=== PATIENT | female | born 1995 | race African-American/Black ===

== ENCOUNTER 2018-12-03 10:00 | Emergency (ER) | payer OTHER ==
[~2018-12-03] VITALS: Ht 162.6 cm; Wt 72.0 kg
[~2018-12-03 10:00] MED LIST: OMEP10CA3 PO
[2018-12-03] MEDS ORDERED: IV NORMAL SALINE 1,000ML 1,000 ML IV ONE (10:15)
[2018-12-03] MEDS ORDERED: ONDA4TAB7 PO (10:18)
--- NOTE | 2018-12-03 10:18 | PHYS DOC ---
Past History Past Medical History: Anxiety, Other Smoking: Non-smoker Alcohol Use: Rarely Drug Use: None Adult General Chief Complaint Chief Complaint: NAUSEA/VOMITING/DIARRHEA HPI HPI History of present illness: 23-year-old female presenting to the emergency department today with nausea and vomiting with upper abdominal pain for the past 24 hours. She started taking new supplement recently for weight loss when her symptoms started. Her vomitus is nonbilious and nonbloody. She has a history of having a partial hysterectomy. Her abdominal pain is a burning mild nonradiating intermittent pain. Past medical history: History of ovarian cancer status post partial hysterectomy , anxiety Surgical history: Appendectomy Social history denies smoking, drinks occasionally, denies IV drug use Review of systems is negative for chest pain shortness of breath fevers chills. All other review of systems is negative unless otherwise noted in history of present illness. ED course: 23-year-old female presenting with epigastric abdominal pain. Vitals are unremarkable. Exam is soft and nontender. CT abdomen pelvis shows no acute pathology but does show lesions in the iliac bone and spine concerning for possible metastatic disease. Patient has an appointment with her hematology oncologist tomorrow. I will refer her to him tomorrow for chest CT and MRI of these lesions for further evaluation treatment and care.The patient has been examined and was not found to have an emergency medical condition. The patient was then discharged home in stable condition to follow up with hem onc tomorrow. They were to return if their symptoms worsened or if they were concerned for any reason. They were also instructed to return to the emergency department if they were unable to get the recommended and appropriate follow- up. [id number] discharge instructions and return precautions were given. Patient's questions were answered to their satisfaction. Patient is comfortable with plan. Review of Systems Review of Systems SEE ABOVE. Allergies Allergies Allergies Coded Allergies Type Severity Reaction Last Updated Verified No Known Drug Allergies 03/31/14 No Physical Exam Physical Exam SEE ABOVE Constitutional: Well developed, well nourished, no acute distress, non-toxic appearance. HENT: Normocephalic, atraumatic, bilateral external ears normal, oropharynx moist, no oral exudates, nose normal. [] Eyes: PERRLA, EOMI, conjunctiva normal, no discharge. [] Neck: Normal range of motion, no tenderness, supple, no stridor. Cardiovascular:Heart rate regular rhythm, no murmur [] Lungs & Thorax: Bilateral breath sounds clear to auscultation [] Abdomen: Soft nontender abdomen without rebound tenderness or guarding present. Negative McBurneys point. Negative Perez sign. Skin: Warm, dry, no erythema, no rash. [] Back: No tenderness, no CVA tenderness. Extremities: No tenderness, no cyanosis, no clubbing, ROM intact, no edema. [] Neurologic: Alert and oriented X 3, normal motor function, normal sensory function, no focal deficits noted. [] Psychologic: Affect normal, judgement normal, mood normal. EKG EKG [] Radiology/Procedures Radiology/Procedures [] Course & Med Decision Making Course & Med Decision Making Pertinent Labs and Imaging studies reviewed. (See chart for details) [] Dragon Disclaimer Dragon Disclaimer This electronic medical record was generated, in whole or in part, using a voice recognition dictation system. Departure Departure: Impression: Primary Impression: Abdominal pain Additional Impression: Nausea & vomiting Disposition: 01 HOME, SELF-CARE Condition: STABLE Referrals: PCPBRUNO (PCP) Patient Instructions: Abdominal Pain, Women, Nausea and Vomiting Additional Instructions: Thank you for allowing us to participate in your care today. Return to the emergency department you have any new or worsening symptoms, or if you are concerned for any reason. Return to emergency department if you have any new or concerning symptoms including but not limited to fever, chills, nausea, vomiting, intractable pain, any new rashes, chest pain, shortness of air , uncontrolled bleeding, difficulty breathing, and/or vision loss. Follow up with your primary care physician within 1-2 days. Call your Primary Doctor tomorrow and inform them of your visit today. If you do not have a primary care provider we are happy to provide you with a list of our primary care providers contact information. This condition should be evaluated by your primary care physician and any recommended consulting services for continued management within 2 days after discharge. If at any time, you are having difficulty getting into your primary care doctor or a specialist, return to the emergency department. Scripts Ondansetron Hcl (ZOFRAN) 4 Mg Tablet 1 TAB PO PRN Q6HRS PRN for NAUSEA, #6 TAB Prov: VANESSA TROY MD 12/03/18 Problem Qualifiers VANESSA TROY MD Dec 03, 2018 10:18
[2018-12-03] MEDS ORDERED: ONDANSETRON PF 4 MG/2 ML VIAL. IV ONE (10:30)
[2018-12-03 10:40] LABS: HEMATOCRIT 45.2 % (36.0-47.0); HEMOGLOBIN 14.8 g/dL (12.0-15.5); MEAN CORPUSCULAR HEMOGLOBIN 32 pg (25-35); MEAN CORPUSCULAR HGB CONC 33 g/dL (31-37); MEAN CORPUSCULAR VOLUME 99 fL (79-100); PLATELET COUNT 228 x10^3/uL (140-400); RED BLOOD COUNT 4.58 x10^6/uL (3.50-5.40); RED CELL DISTRIBUTION WIDTH 12.5 % (11.5-14.5); WHITE BLOOD COUNT 10.4 x10^3/uL (4.0-11.0)
[2018-12-03 10:44] LABS: CALCIUM 9.6 mg/dL (8.5-10.1); CREATININE 0.7 mg/dL (0.6-1.0); DIRECT BILIRUBIN 0.1 mg/dL (0.0-0.2); GFR 124.4; PREG TEST PT QUAL NEGATIVE (NEG); TOTAL BILIRUBIN 0.4 mg/dL (0.2-1.0); TOTAL PROTEIN 8.1 g/dL (6.4-8.2)
[2018-12-03 11:00] LABS: CLARITY,URINE CLOUDY; COLOR,URINE YELLOW
[2018-12-03 11:01] LABS: AMORPHOUS SEDIMENT,UR PRESENT /HPF; BACTERIA,URINE 0 /HPF (0-FEW); BILIRUBIN,URINE NEG (NEG); GLUCOSE,URINE NEG (NEG); NITRITE,URINE NEG (NEG); RBC,URINE 0 /HPF (0-2); SQUAMOUS EPITHELIAL CELL,UR OCC /LPF; UROBILINOGEN,URINE 0.2 mg/dL (0.2 mg/dL); WBC,URINE RARE /HPF (0-4)
[2018-12-03] MEDS ORDERED: IOHEXOL 300 MG/ML 75 ML VIAL. IV ONE (11:15)
[2018-12-03 11:40] LABS: % BANDS 1 % (0-9); % BASOS 0 % (0-3); % EOS 2 % (0-5); % LYMPHS 16 % (24-48); % MONOS 2 % (0-10); % SEGS 79 % (35-66); PLT ESTIMATE ADEQUATE (ADEQUATE); TOXIC VACUOLATION SLIGHT
--- NOTE | 2018-12-03 11:57 | RAD ---
CT ABD PELV W/ IV CONTRST ONLY History: Abdominal pain, nausea and vomiting starting last night Technique: Postcontrast CT imaging was performed of the abdomen and pelvis, multiplanar reconstruction images submitted. No oral contrast was given as per request. One or more of the following individualized dose reduction techniques were utilized for this examination: 1. Automated exposure control 2. Adjustment of the mA and/or kV according to patient size 3. Use of iterative reconstruction technique. Comparison: March 31, 2014 Findings: There is no abnormality of the limited visualized lung bases. No focal abnormality is identified of the liver, spleen, pancreas, gallbladder. There is no adrenal nodularity. Both kidneys enhance without hydronephrosis. Accurate evaluation of bowel is limited without oral contrast. There is no significant bowel dilatation, free air, free fluid. There has been appendectomy, also reportedly right oophorectomy. There is no significant inflammatory type change localized about the bowel. However there is appearance of at least mild diffuse transverse colonic wall thickening. There is larger focus of nonspecific sclerosis of the left iliac bone about 1.3 cm with somewhat spiculated margin, previously about 0.6 cm. There are also some small sclerotic foci such as on the right at S1 and on the left at L1 and T11 not seen previously, small sclerotic focus focus of the left L4 vertebral body probably unchanged. Limited visualized right breast is more heterogeneous than the left. IMPRESSION: 1. Suboptimally evaluated without oral contrast, there is appearance of diffuse transverse colonic wall thickening suggestive of colitis. There is no free air or free fluid. Bowel is not significantly dilated. 2. There is a focus of nonspecific sclerosis of the left iliac bone larger than 2014 exam, also some other new tiny foci of sclerosis of S1, T11, L1. Given change, findings are concerning for marrow replacing lesions (such as metastatic disease). Bone scan evaluation to assess for abnormal radiotracer activity and to assess for other lesions is advised, also chest CT evaluation and breast evaluation recommended. Findings discussed with VANESSA TROY at 12/03/2018 11:52 AM. Electronically signed by: Rodrigo Jimenez MD (12/03/2018 11:53 AM) [id number]
[2018-12-03 12:25] VITALS: BP 122/66
== END 2018-12-03 12:25 | disposition home or self-care (01) ==
LOC: ER 10:00
DX: R11.2 Nausea with vomiting, unspecified (principal); R10.10 Upper abdominal pain, unspecified; Z90.710 Acquired absence of both cervix and uterus; Z90.89 Acquired absence of other organs
CPT/HCPCS: 36415; 74177; 80048; 80076; 81001; 81025; 83690; 84703; 85007; 85025; 96361; 96374; 99284; J2405; Q9967; J7030

== ENCOUNTER 2019-01-17 07:59 | Emergency (ER) | payer OTHER ==
[~2019-01-17] VITALS: Ht 162.6 cm; Wt 68.0 kg
[~2019-01-17 07:59] MED LIST changes: -OMEP10CA3 PO; +OMEP10CA4 PO; +ONDA4TAB7 PO
[2019-01-17 08:10] VITALS: BP 119/87
[2019-01-17] MEDS ORDERED: ONDANSETRON PF 4 MG/2 ML VIAL. ONE (08:20)
[2019-01-17] MEDS ORDERED: IV NORMAL SALINE 1,000ML 1,000 ML IV SCH (08:30)
[2019-01-17] MEDS ORDERED: ONDANSETRON PF 4 MG/2 ML VIAL. IV ONE (08:30)
[2019-01-17 08:38] LABS: AMPHETAMINE/METHAMPHETAMINE NEG (NEG); BARBITURATES NEG (NEG); BENZODIAZEPINES NEG (NEG); CANNABINOIDS POS (NEG); COCAINE NEG (NEG); METHADONE NEG (NEG); OPIATES NEG (NEG); PHENCYCLIDINE NEG (NEG)
[2019-01-17 08:44] LABS: BASO % 1 % (0-3); EOS # 0.1 x10^3/uL (0.0-0.7); EOS % 2 % (0-3); HEMATOCRIT 43.4 % (36.0-47.0); HEMOGLOBIN 14.7 g/dL (12.0-15.5); LYMPH # 2.2 x10^3/uL (1.0-4.8); LYMPH % 37 % (24-48); MEAN CORPUSCULAR HEMOGLOBIN 32 pg (25-35); MEAN CORPUSCULAR HGB CONC 34 g/dL (31-37); MEAN CORPUSCULAR VOLUME 96 fL (79-100); MONO # 0.3 x10^3/uL (0.0-1.1); MONO % 5 % (0-9); NEUT # 3.3 x10^3uL (1.8-7.7); NEUT % 56 % (31-73); PLATELET COUNT 189 x10^3/uL (140-400); RED BLOOD COUNT 4.54 x10^6/uL (3.50-5.40); RED CELL DISTRIBUTION WIDTH 12.6 % (11.5-14.5); WHITE BLOOD COUNT 5.9 x10^3/uL (4.0-11.0)
[2019-01-17 08:48] LABS: BILIRUBIN,URINE NEG (NEG); CLARITY,URINE HAZY; COLOR,URINE YELLOW; GLUCOSE,URINE NEG (NEG)
[2019-01-17 08:49] LABS: BACTERIA,URINE FEW /HPF (0-FEW); NITRITE,URINE NEG (NEG); SQUAMOUS EPITHELIAL CELL,UR FEW /LPF; UROBILINOGEN,URINE 0.2 mg/dL (0.2 mg/dL)
[2019-01-17 08:56] LABS: CALCIUM 9.3 mg/dL (8.5-10.1); CREATININE 0.7 mg/dL (0.6-1.0); GFR 124.4; POTASSIUM 3.6 mmol/L (3.5-5.1); TOTAL BILIRUBIN 0.4 mg/dL (0.2-1.0)
[2019-01-17] MEDS ORDERED: KETOROLAC 30 MG/ML VIAL. IV ONE (09:15)
[2019-01-17] MEDS ORDERED: ONDA4TAB7 PO (09:36)
--- NOTE | 2019-01-17 09:37 | PHYS DOC ---
Past History Past Medical History: Cancer Past Surgical History: Other Smoking: Non-smoker Alcohol Use: None Drug Use: None Adult General Chief Complaint Chief Complaint: NAUSEA/VOMITING/DIARRHEA HPI HPI Patient is a 23 year old female who presents with complaining of nausea and vomiting and diarrhea since this morning. Patient states since yesterday this morning she had more than 10 episodes of bile vomiting and 4 episodes of diarrhea with epigastric and periumbilical pain as a cramping pain during episodes of vomiting and diarrhea. Patient rated her pain 7/10 and denies fever and chills, urinary symptom, sick contact. Patient states she had the same problem previously and was seen in this emergency room. Patient had history of ovarian cancer treated 2 years ago at [facility] and followed up with her oncologist after had abnormal CT of abdomen and pelvis in her previous emergency room visit with concern for possible bone metastases and was told she does not have bony metastasis. Review of Systems Review of Systems Constitutional: Denies fever or chills [] Eyes: Denies change in visual acuity, redness, or eye pain [] HENT: Denies nasal congestion or sore throat [] Respiratory: Denies cough or shortness of breath [] Cardiovascular: No additional information not addressed in HPI [] GI: Reports abdominal pain, nausea, vomiting, diarrhea [] : Denies dysuria or hematuria [] Musculoskeletal: Denies back pain or joint pain [] Integument: Denies rash or skin lesions [] Neurologic: Denies headache, focal weakness or sensory changes [] Endocrine: Denies polyuria or polydipsia [] All other systems were reviewed and found to be within normal limits, except as documented in this note. Current Medications Current Medications Current Medications Medications (Trade) Dose Ordered Sig/Mihai Start Time Stop Time Status Last Admin Dose Admin Ketorolac Tromethamine (Toradol 30mg Vial) 30 mg 1X ONCE 01/17/19 09:15 01/17/19 09:17 DC 01/17/19 09:06 30 MG Ondansetron HCl (Zofran) 4 mg 1X ONCE 01/17/19 08:30 01/17/19 08:31 DC 01/17/19 08:36 4 MG Sodium Chloride 1,000 ml @ 1,000 mls/hr Q1H 01/17/19 08:30 01/17/19 09:29 DC 01/17/19 08:36 1,000 MLS/HR Allergies Allergies Allergies Coded Allergies Type Severity Reaction Last Updated Verified No Known Drug Allergies 12/03/18 No Physical Exam Physical Exam Constitutional: Well developed, well nourished, moderate acute distress, non- toxic appearance. [] HENT: Normocephalic, atraumatic, oropharynx dry, no oral exudates, nose normal. [] Eyes: PERRLA, EOMI, conjunctiva normal, no discharge. [] Neck: Normal range of motion, no tenderness, supple, no stridor. [] Cardiovascular:Heart rate regular rhythm, no murmur [] Lungs & Thorax: Bilateral breath sounds clear to auscultation [] Abdomen: Bowel sounds normal, soft, no tenderness, no masses, no pulsatile masses. [] Skin: Warm, dry, no erythema, no rash. [] Back: No tenderness, no CVA tenderness. [] Extremities: No tenderness, no cyanosis, no clubbing, ROM intact, no edema. [] Neurologic: Alert and oriented X 3, normal motor function, normal sensory function, no focal deficits noted. [] Psychologic: Affect normal, judgement normal, mood normal. [] Current Patient Data Vital Signs Vital Signs Date Time Temp Pulse Resp B/P (MAP) Pulse Ox O2 Delivery O2 Flow Rate FiO2 01/17/19 08:10 97.6 89 20 100 Room Air Lab Results Laboratory Tests Test 01/17/19 08:10 01/17/19 08:17 01/17/19 08:21 Urine Collection Type Unknown Urine Color Yellow Urine Clarity Hazy Urine pH 5.5 Urine Specific Warner >=1.030 Urine Protein 30 mg/dl (NEG-TRACE) Urine Glucose (UA) Neg mg/dL (NEG) Urine Ketones (Stick) Neg mg/dL (NEG) Urine Blood Neg (NEG) Urine Nitrite Neg (NEG) Urine Bilirubin Neg (NEG) Urine Urobilinogen Dipstick 0.2 mg/dL (0.2 mg/dL) Urine Leukocyte Esterase Neg (NEG) Urine RBC 1-2 /HPF (0-2) Urine WBC 1-4 /HPF (0-4) Urine Squamous Epithelial Cells Few /LPF Urine Bacteria Few /HPF (0-FEW) Urine Mucus Slight /LPF Urine Opiates Screen Neg (NEG) Urine Methadone Screen Neg (NEG) Urine Barbiturates Neg (NEG) Urine Phencyclidine Screen Neg (NEG) Urine Amphetamine/Methamphetamine Neg (NEG) Urine Benzodiazepines Screen Neg (NEG) Urine Cocaine Screen Neg (NEG) Urine Cannabinoids Screen Pos (NEG) Urine Ethyl Alcohol Neg (NEG) POC Urine HCG, Qualitative hcg negative (Negative) White Blood Count 5.9 x10^3/uL (4.0-11.0) Red Blood Count 4.54 x10^6/uL (3.50-5.40) Hemoglobin 14.7 g/dL (12.0-15.5) Hematocrit 43.4 % (36.0-47.0) Mean Corpuscular Volume 96 fL (79-100) Mean Corpuscular Hemoglobin 32 pg (25-35) Mean Corpuscular Hemoglobin Concent 34 g/dL (31-37) Red Cell Distribution Width 12.6 % (11.5-14.5) Platelet Count 189 x10^3/uL (140-400) Neutrophils (%) (Auto) 56 % (31-73) Lymphocytes (%) (Auto) 37 % (24-48) Monocytes (%) (Auto) 5 % (0-9) Eosinophils (%) (Auto) 2 % (0-3) Basophils (%) (Auto) 1 % (0-3) Neutrophils # (Auto) 3.3 x10^3uL (1.8-7.7) Lymphocytes # (Auto) 2.2 x10^3/uL (1.0-4.8) Monocytes # (Auto) 0.3 x10^3/uL (0.0-1.1) Eosinophils # (Auto) 0.1 x10^3/uL (0.0-0.7) Basophils # (Auto) 0.0 x10^3/uL (0.0-0.2) Sodium Level 145 mmol/L (136-145) Potassium Level 3.6 mmol/L (3.5-5.1) Chloride Level 106 mmol/L (98-107) Carbon Dioxide Level 29 mmol/L (21-32) Anion Gap 10 (6-14) Blood Urea Nitrogen 9 mg/dL (7-20) Creatinine 0.7 mg/dL (0.6-1.0) Estimated GFR (Cockcroft-Gault) 124.4 BUN/Creatinine Ratio 13 (6-20) Glucose Level 107 mg/dL (70-99) H Calcium Level 9.3 mg/dL (8.5-10.1) Total Bilirubin 0.4 mg/dL (0.2-1.0) Aspartate Amino Transferase (AST) 18 U/L (15-37) Alanine Aminotransferase (ALT) 22 U/L (14-59) Alkaline Phosphatase 91 U/L (46-116) Total Protein 8.0 g/dL (6.4-8.2) Albumin 4.0 g/dL (3.4-5.0) Albumin/Globulin Ratio 1.0 (1.0-1.7) Lipase 206 U/L (73-393) EKG EKG [] Radiology/Procedures Radiology/Procedures [] Course & Med Decision Making Course & Med Decision Making Pertinent Labs reviewed. (See chart for details) Evolution of patient in ER showed 23-year-old female patient with complaining of episodes of nausea and vomiting and diarrhea since this morning. Patient treated with IV fluid and Zofran and Toradol and felt better and tolerated oral intake. Patient had the same problem few weeks ago and seen in this emergency room and had CT of abdomen and pelvis. Plan discharge patient home with diagnosis of acute gastroenteritis and instruction to follow up with her oncologist. Dragon Disclaimer Dragon Disclaimer This electronic medical record was generated, in whole or in part, using a voice recognition dictation system. Departure Departure: Impression: Primary Impression: Acute gastroenteritis Additional Impressions: Marijuana abuse History of ovarian cancer in adulthood Disposition: 01 HOME, SELF-CARE (at 0935) Condition: IMPROVED Referrals: PCP,NO (PCP) Patient Instructions: Viral Gastroenteritis Additional Instructions: Drink plenty of liquids Follow-up with your primary care physician in 3-5 days Return to ER if not getting better Do not take solid food today Scripts Ondansetron Hcl (ZOFRAN) 4 Mg Tablet 1 TAB PO Q6HRS for nausea and vomiting, #12 TAB Prov: NEISHA CHRISTOPHER MD 01/17/19 Problem Qualifiers NEISHA CHRISTOPHER MD Jan 17, 2019 09:37
== END 2019-01-17 09:54 | disposition home or self-care (01) ==
LOC: ER 07:59
DX: K52.9 Noninfective gastroenteritis and colitis, unspecified (principal); F12.10 Cannabis abuse, uncomplicated; Z85.43 Personal history of malignant neoplasm of ovary
CPT/HCPCS: 36415; 80053; 80307; 81001; 81025; 83690; 85025; 96361; 96374; 96375; 99283; J1885; J2405; J7030

== ENCOUNTER 2020-04-03 03:13 | Emergency (ER) | payer OTHER ==
[~2020-04-03] VITALS: Ht 162.6 cm; Wt 70.8 kg
[2020-04-03 03:29] VITALS: BP 147/95
[2020-04-03] MEDS ORDERED: ERYT1OIN6 OP (03:41)
[2020-04-03] MEDS ORDERED: BUTA1TAB23 PO (03:41)
--- NOTE | 2020-04-03 03:41 | PHYS DOC ---
Past History Past Medical History: Cancer, Other Additional Past Medical Histor: ovarian cancer Past Surgical History: Appendectomy, Hysterectomy (Partial), Other Smoking: Cigarettes Alcohol Use: None Drug Use: None General Adult EDM: Chief Complaint: HEADACHE HPI: HPI: 24-year-old female presents with 3 day history of headache and eye redness/burning. Reports worse at night. Reports is having a "throbbing/pounding "headache. Denies known sick contacts. Patient does report history of seasonal allergy issues. Denies fever or chills. Patient does wear contacts. Reports this morning symptoms became worse and therefore presents to the ER for further evaluation. Review of Systems: Review of Systems: Constitutional: Denies fever or chills Eyes: Reports redness and eye discomfort/burning sensation; reports photophobia HENT: Reports nasal congestion; denies sore throat Respiratory: Denies cough or shortness of breath Cardiovascular: Denies chest pain or palpitations GI: Denies abdominal pain, nausea, or vomiting : Denies dysuria or hematuria Musculoskeletal: Denies back pain or joint pain Integument: Denies rash or skin lesions Neurologic: Reports headache; denies focal weakness or sensory changes Complete systems were reviewed and found to be within normal limits, except as documented in this note. Allergies: Allergies: Allergies Coded Allergies Type Severity Reaction Last Updated Verified No Known Drug Allergies 12/03/18 No Physical Exam: PE: Constitutional: Well developed, well nourished, uncomfortable, non-toxic appearance HENT: Normocephalic, atraumatic, oropharynx moist Eyes: PERRL, EOMI, conjunctiva injected bilaterally, no discharge Neck: Normal range of motion, supple Lungs & Thorax: No respiratory distress, equal chest rise and fall Skin: Warm, dry, no erythema, no rash Extremities: No tenderness, ROM intact, no edema Neurologic: Alert and oriented X 3, normal motor function, normal sensory function, no focal deficits noted Psychologic: Affect normal, judgment normal Current Patient Data: Vital Signs: Vital Signs Date Time Temp Pulse Resp B/P (MAP) Pulse Ox O2 Delivery O2 Flow Rate FiO2 04/03/20 03:29 98.0 70 16 147/95 (112) 100 Room Air EKG: EKG: [] Radiology/Procedures: Radiology/Procedures: [] Course & Med Decision Making: Course & Med Decision Making Patient with past medical history of seasonal allergies who wears contacts presents with report of bilateral eye redness and burning sensation with associated headache. Patient does appear to be congested. No history of trauma. Afebrile. No meningeal signs noted. Concern for allergic conjunctivitis. Protective erythromycin ophthalmic ointment applied. Symptomatic treatment provided with oral steroid, Fioricet, and IM ketorolac. Patient stable for discharge with outpatient follow-up with PCP. Discussed findings and plan with patient, who acknowledges understanding and agreement. Carmelo Disclaimer: Carmelo Disclaimer: This electronic medical record was generated, in whole or in part, using a voice recognition dictation system. Departure Departure: Impression: Primary Impression: Allergic conjunctivitis Qualified Codes: H10.13 - Acute atopic conjunctivitis, bilateral Additional Impression: Headache Qualified Codes: R51 - Headache Disposition: 01 HOME, SELF-CARE Condition: STABLE Referrals: PCP,NO (PCP) Patient Instructions: Allergic Conjunctivitis, [id number], Headache, FAQs Scripts Butalb/Acetaminophen/Caffeine ([id number] 50-325-40) 1 Each Tablet 1 EACH PO Q6HRS PRN for HEADACHE, #14 TAB Prov: MISHA CERVANTES DO 04/03/20 Erythromycin Base (Erythromycin) 1 Gm Oint...g. 0.25 INCH OP QID for Conjunctivitis for 5 Days, #1 TUBE Prov: MISHA CERVANTES DO 04/03/20 MISHA CERVANTES DO April 03, 2020 03:41
[2020-04-03] MEDS ORDERED: DEXAMETHASONE 4 MG TABLET PO ONE (03:45)
[2020-04-03] MEDS ORDERED: BUTALB/APAP/CAFEIN 50/325/40MG TABLET. PO ONE (03:45)
[2020-04-03] MEDS ORDERED: ERYTHROMYCIN 0.5% OPHTH OINTMENT 1GM TUBE. OU ONE (03:45)
[2020-04-03] MEDS ORDERED: KETOROLAC 30 MG/ML VIAL. IM ONE (03:45)
== END 2020-04-03 04:15 | disposition home or self-care (01) ==
LOC: ER 03:13
DX: H10.13 Acute atopic conjunctivitis, bilateral (principal); R51 Headache; F17.210 Nicotine dependence, cigarettes, uncomplicated
CPT/HCPCS: 96372; 99284; J1885; J8540

== ENCOUNTER → 2020-07-05 | Outpatient (CLI) | payer OTHER ==
[~2020-07-05] MED LIST changes: +BUTA1TAB23 PO; +ERYT1OIN6 OP
[2020-07-06 07:10] LABS: ESTRADIOL LEVEL 14.1 pg/mL (.); FSH 13.3 mIU/mL (.)
== END | disposition home or self-care (01) ==
LOC: LAB 15:36
PROVIDERS: ATTEND Obstetrics & Gynecology Reproductive Endocrinology
DX: N97.8 Female infertility of other origin (principal)
CPT/HCPCS: 36415; 82670; 83001; 84443

== ENCOUNTER 2021-02-16 13:52 | Emergency (ER) | payer OTHER ==
[~2021-02-16] VITALS: Ht 162.6 cm; Wt 69.0 kg
--- NOTE | 2021-02-16 14:08 | PHYS DOC ---
Past History Past Medical History: Cancer, Other Additional Past Medical Histor: ovarian cancer (MISHA JONES APRN) Past Surgical History: Appendectomy, Hysterectomy, Other (MISHA JONES APRN) Smoking: Cigarettes Alcohol Use: None Drug Use: None (MISHA JONES APRN) Adult General Chief Complaint Chief Complaint: ABDOMINAL PAIN HPI HPI Patient is a 25-year-old female who presents to the emergency department reporting right upper quadrant pain for the past week, patient states she thou ght she was constipated and has been taking stool softeners however has noticed she has been pooping normally now and continues to have this right upper quadrant pain. Patient states it is a 10/10 on a 1-10 pain scale however sometimes it relieves itself to a 7/10 on a 1-10 pain scale. Patient denies any nausea, vomiting, diarrhea, or current constipation. Patient denies headaches, chest pain, chest congestion, shortness of breath. Patient denies swelling of her extremities. Patient denies any loss of bowel or loss of urine. Patient denies any low abdomen pain. Patient denies urinary tract infection signs and symptoms, patient denies any STI concerns or vaginal discharge. Patient states she had her left ovary removed with appendectomy in 2017 by her [facility] RACER at . Patient states she had a normal menstrual cycle 2 weeks ago. Patient denies any allergies to medications, patient states she takes no prescription medications at home. Patient denies any other physical complaints or physical concerns. (MISHA JONES APRN) Review of Systems Review of Systems 14 body systems of review of systems have been reviewed. See HPI for pertinent positives and negative responses, otherwise all other systems are negative, nonpertinent or noncontributory. (MISHA JONES APRN) Allergies Allergies Allergies Coded Allergies Type Severity Reaction Last Updated Verified No Known Drug Allergies 12/03/18 No (MISHA JONES APRN) Physical Exam Physical Exam Constitutional: Well developed, well nourished, no acute distress, non-toxic appearance. 25-year-old female no apparent distress. HENT: Normocephalic, atraumatic, bilateral external ears normal, oropharynx moist, no oral exudates, nose normal. Oropharynx moist, pink, no infectious process noted, no lymphadenopathy of the head or neck appreciated, bilateral TMs within normal limits. Eyes: PERRLA, EOMI, conjunctiva normal, no discharge. Neck: Normal range of motion, no tenderness, supple, no stridor. No midline spinal tenderness, no meningismus signs, no nuchal rigidity. Cardiovascular:Heart rate regular rhythm, heart sounds S1-S2 to auscultation. Lungs & Thorax: Bilateral breath sounds clear to auscultation all lung shelby, no adventitious lung sounds appreciated. Abdomen: Bowel sounds normal, soft, no tenderness, no masses, no pulsatile masses. Patient does have however have right upper quadrant pain, positive Perez sign, no rebound tenderness, no McBurney's point tenderness, no areas of ecchymosis to the abdomen appreciated. Patient has well-healed abdominal scar consistent with appendectomy and ovarian surgery. Skin: Warm, dry, no erythema, no rash. Back: No tenderness, no CVA tenderness. Extremities: No tenderness, no cyanosis, no clubbing, ROM intact, no edema. Neurologic: Alert and oriented X 3, normal motor function, normal sensory function, no focal deficits noted. Psychologic: Affect normal, judgement normal, mood normal. (MISHA JONES APRN) Current Patient Data Lab Results Laboratory Tests Test 02/16/21 14:05 02/16/21 14:14 White Blood Count 10.7 x10^3/uL Red Blood Count 4.25 x10^6/uL Hemoglobin 14.2 g/dL Hematocrit 42.1 % Mean Corpuscular Volume 99 fL Mean Corpuscular Hemoglobin 33 pg Mean Corpuscular Hemoglobin Concent 34 g/dL Red Cell Distribution Width 12.0 % Platelet Count 290 x10^3/uL Neutrophils (%) (Auto) 71 % Lymphocytes (%) (Auto) 22 % Monocytes (%) (Auto) 6 % Eosinophils (%) (Auto) 1 % Basophils (%) (Auto) 0 % Neutrophils # (Auto) 7.6 x10^3uL Lymphocytes # (Auto) 2.4 x10^3/uL Monocytes # (Auto) 0.6 x10^3/uL Eosinophils # (Auto) 0.1 x10^3/uL Basophils # (Auto) 0.0 x10^3/uL Urine Collection Type Unknown Urine Color Marly Urine Clarity Clear Urine pH 5.5 Urine Specific [place] >=1.030 Urine Protein 30 mg/dl Urine Glucose (UA) Neg mg/dL Urine Ketones (Stick) 40 mg/dL Urine Blood Trace Urine Nitrite Neg Urine Bilirubin Small Urine Urobilinogen Dipstick 0.2 mg/dL Urine Leukocyte Esterase Trace Urine RBC 6-10 /HPF Urine WBC 1-4 /HPF Urine Squamous Epithelial Cells Occ /LPF Urine Bacteria Few /HPF Sodium Level 139 mmol/L Potassium Level 3.5 mmol/L Chloride Level 102 mmol/L Carbon Dioxide Level 27 mmol/L Anion Gap 10 Blood Urea Nitrogen 8 mg/dL Creatinine 0.8 mg/dL Estimated GFR (Cockcroft-Gault) 104.9 BUN/Creatinine Ratio 10 Glucose Level 90 mg/dL Lactic Acid Level 0.6 mmol/L Calcium Level 9.2 mg/dL Total Bilirubin 0.5 mg/dL Aspartate Amino Transf (AST/SGOT) 12 U/L Alanine Aminotransferase (ALT/SGPT) 17 U/L Alkaline Phosphatase 90 U/L Total Protein 8.0 g/dL Albumin 3.4 g/dL Albumin/Globulin Ratio 0.7 Lipase 43 U/L Bedside Urine HCG, Qualitative hcg negative Current Medications Medications (Trade) Dose Ordered Sig/Mihai Route PRN Reason Start Time Stop Time Status Last Admin Dose Admin Morphine Sulfate (Morphine 2mg Syringe) 2 mg 1X ONCE IV 02/16/21 14:45 02/16/21 14:46 DC 02/16/21 15:11 Morphine Sulfate (Morphine 2mg Syringe) 2 mg 1X ONCE IV 02/16/21 16:00 02/16/21 16:01 DC 02/16/21 16:55 Iohexol (Omnipaque 300 Mg/ml) 75 ml 1X ONCE IV 02/16/21 16:15 02/16/21 16:16 DC 02/16/21 16:10 Info (Do NOT chart on this entry -- for MONITORING) 1 each PRN DAILY PRN MC SEE COMMENTS 02/16/21 16:15 02/16/21 18:11 DC (MISHA JONES APRN) EKG EKG [] (MISHA JONES APRN) Radiology/Procedures Radiology/Procedures PATIENT: CHUCK ERAZO ACCOUNT: [id number] : 1995 LOCATION: ER AGE: 25 SEX: F EXAM STATUS: REG ER ORD. PHYSICIAN: MISHA JONES APRN REASON: RUQ PAIN, HEMATURIA OMNI 300 75ML IV PROCEDURE: CT ABD PELV W/ IV CONTRST ONLY INDICATION: Reason: RUQ PAIN, HEMATURIA OMNI 300 75ML IV / Spl. Instructions: / History: . COMPARISON: December 03, 2018 TECHNIQUE: Axial CT images obtained through the abdomen and pelvis with contrast. One or more of the following individualized dose reduction techniques were utilized for this examination: 1. Automated exposure control; 2. Adjustment of the mA and/or kV according to patient size; 3. Use of iterative reconstruction technique. FINDINGS: Abdominal aorta not aneurysmal. Subcentimeter low-density lesion left lobe the liver likely benign in nature in a patient of this age. Liver is mildly low density which can be seen with mild fatty infiltration. No peripancreatic fluid collection. Spleen unremarkable. No hydronephrosis. There is some high density material in the bilateral renal pelvis. Urinary bladder has minimal urine within it at time of exam. Within the left adnexa there is a rim-enhancing low-density structure measuring approximately 52 x 22 mm. There is a smaller fluid filled structure in the right adnexa with rim enhancement measuring approximately 8mm. Surgical clips right lower quadrant. No dilated loops of bowel to suggest obstruction. Sclerotic lesion left iliac bone measuring 14 mm. Most common cause would be bone island in a patient of this age unless they have history of neoplasm. IMPRESSION: * Within the left adnexa and extending posterior to the uterus there is a rim-e nhancing fluid-filled structure identified. Differential considerations would include causes such as hydrosalpinx or pyosalpinx as well as a fluid collection. Infectious involvement such as tubo-ovarian abscess is not excluded given the rim enhancement. * Liver is low density which can be seen with fatty infiltration. * High density within the bilateral renal pelvis likely secondary to excreted contrast. This could obscure small renal stones. There is no hydronephrosis. Electronically signed by: Rosalie Mueller MD (02/16/2021 4:33 PM) [id number] DICTATED AND SIGNED BY: ROSALIE MUELLER MD DATE: 02/16/21 1619 CC: MISHA JONES APRN; NON,STAFF ~[facility] 0 PATIENT: CHUCK ERAZO ACCOUNT: [id number] : 1995 LOCATION: ER AGE: 25 SEX: F EXAM STATUS: REG ER ORD. PHYSICIAN: MISHA JONES APRN REASON: RUQ PAIN, POSITIVE PEREZ'S SIGN PROCEDURE: ABDOMEN LTD INDICATION : Reason: RUQ PAIN, POSITIVE PEREZ'S SIGN / Spl. Instructions: / History: COMPARISON: None TECHNIQUE: Multiple ultrasound images obtained through the abdomen in grayscale and color. FINDINGS: Liver: Echotexture within normal limits in visualized portions of liver. Gallbladder: No wall thickening or stones. IVC: Partially distended at level of liver. Common Bile Duct: 5 to 6 mm Pancreas: No gross abnormality identified in visualized portions of pancreas. Right Kidney: No hydronephrosis. IMPRESSION: * Common bile duct near upper limits of normal in size without gallstones seen. The patient does have pain to transducer pressure in the right upper quadrant. Electronically signed by: Rosalie Mueller MD (02/16/2021 3:06 PM) [id number] DICTATED AND SIGNED BY: ROSALIE MUELLER MD DATE: 02/16/21 1503 CC: MISHA JONES APRN; NON,STAFF ~[facility] 0 (MISHA JONES APRN) Heart Score C/O Chest Pain: No Risk Factors: Risk Factors: DM, Current or recent (<one month) smoker, HTN, HLP, family history of CAD, obesity. Risk Scores: Risk Factors: DM, Current or recent (<one month) smoker, HTN, HLP, family history of CAD, obesity. (MISHA JONES APRN) Course & Med Decision Making Course & Med Decision Making Pertinent Labs and Imaging studies reviewed. (See chart for details) 25-year-old female, vital signs reviewed, presents emergency department complaining of upper right quadrant pain for a week. Physical examination concerning for cholecystitis versus pancreatitis versus other acute abdominal anomaly. A urine assay was ordered, CBC, BMP, lipase. A sonogram to rule out gallbladder disease or pancreas disease was ordered. Patient's urine was not infected, abdominal sonogram inconclusive. A CT abdomen pelvis was ordered. CT showed concerning findings of left ovarian area. Discussed findings with BICYCLE RACER specialist Dr. Ho who stated this was most likely an incidental finding and to have patient follow-up outpatient. Discussed findings with patient, patient states she has a OB appointment with the surgeon that performed her left ovarian surgical removal this coming week, discussed with patient will give CD copy of CT report. Patient states she will bring copy of CD to her BICYCLE RACER appointment next week. Patient states she has now pain-free, patient was given IV morphine in the ED. Reexamination the patient found patient pain-free, patient is in no apparent distress, patient is nontoxic in appearance. Patient gave verbal understanding of discharge home instructions, keep appointment with BICYCLE RACER, follow-up with primary care physician for ongoing aches and pains, return to ED precautions and concerns. Patient was discharged to home without incident. (MISHA JONES APRN) Course & Med Decision Making I oversaw on the above date of service of this patient and discussed the care with the [employer]AT [employer] INST[employer]ER. I recommended [employer] INST[employer]ER to contact BICYCLE RACER to review questionable findings. I agree with the findings, plan of care, and disposition as documented. Electronically signed, Chandana Schulz DO (CHANDANA SCHULZ DO) Carmelo Disclaimer Carmelo Disclaimer This electronic medical record was generated, in whole or in part, using a voice recognition dictation system. (MISHA JONES APRN) Departure Departure: Impression: Primary Impression: Abdominal pain of unknown etiology Disposition: 01 DC HOME SELF CARE/HOMELESS Condition: GOOD Referrals: NON,STAFF (PCP) Patient Instructions: Abdominal Pain Additional Instructions: We have done an extensive evaluation of your abdominal pain, there were no findings to suggest an acute infectious process or findings that would require admission to the hospital, your blood work was normal, however a scan of your abdomen showed an abnormality where you had surgery. Fortunately you have a appointment with your BICYCLE RACER that performed the surgery here soon. I have given you a copy of your report on CD, please bring the CD with you to your BICYCLE RACER appointment at so that your BICYCLE RACER specialist can determine if any further procedures may need to be done. Please follow-up with your primary care doctor for ongoing aches and pains. Please return to the emergency department for worsening symptoms or other concerns. EMERGENCY DEPARTMENT GENERAL DISCHARGE INSTRUCTIONS Thank you for coming to [facility] (ED) today and trusting us with you care. We trust that you had a positivie experience in our Emergency Department. If you wish to speak to the department management, you may call the director at [phone]. YOUR FOLLOW UP INSTRUCTIONS ARE FOLLOWS: 1. Do you have a private Doctor? If you do not have a private doctor, please ask for a resource list of physicians or clinics that may be able to assist you with follow up care. 2. The Emergency Physician has interpreted your x-rays. The X-Ray specialist will also review them. If there is a change in the findings, you will be notified in 48 hours when at all possible. 3. A lab test or culture has been done, your results will be reviewed and you will be notified if you need a change in treatment. ADDITIONAL INSTRUCTIONS AND INFORMATION: 1. Your care today has been supervised by a physician who is specially trained in emergency care. Many problems require more than one evaluation for a complete diagnosis and treatment. We recommend that you schedule your follow up appointment as recommended to ensure complete treatment of you illness or injury. If you are unable to obtain follow up care and continue to have a problem, or if your condition worsens, we recommend that you return to the ED. 2. We are not able to safely determine your condition over the phone nor are we able to give sound medical advice over the phone. For these safety reasons, if you call for medical advice we will ask you to come to the ED for further evaluation. 3. If you have any questions regarding these discharge instructions please call the ED at [phone]. SAFETY INFORMATION: In the interest of safety, wellness, and injury prevention; we encourage you to wear your sealbelt, if you smoke; quite smoking, and we encourage family to use a protective helmet for bicycling and other sporting events that present an increased risk for head injury. IF YOUR SYMPTOMS WORSEN OR NEW SYMPTOMS DEVELOP, OR YOU HAVE CONCERNS ABOUT YOUR CONDITION; OR IF YOUR CONDITION WORSENS WHILE YOU ARE WAITING FOR YOUR FOLLOW UP APPOINTMENT; EITHER CONTACT YOUR PRIMARY CARE DOCTOR, THE PHYSICIAN WHOSE NAME AND NUMBER YOU WERE GIVEN, OR RETURN TO THE ED IMMEDIATELY. MISHA JONES APRN Feb 16, 2021 14:08 CHANDANA SCHULZ DO Feb 17, 2021 06:26
[2021-02-16 14:24] LABS: BASO % 0 % (0-3); EOS # 0.1 x10^3/uL (0.0-0.7); EOS % 1 % (0-3); HEMATOCRIT 42.1 % (36.0-47.0); HEMOGLOBIN 14.2 g/dL (12.0-15.5); LYMPH # 2.4 x10^3/uL (1.0-4.8); LYMPH % 22 % (24-48); MEAN CORPUSCULAR HEMOGLOBIN 33 pg (25-35); MEAN CORPUSCULAR HGB CONC 34 g/dL (31-37); MEAN CORPUSCULAR VOLUME 99 fL (79-100); MONO # 0.6 x10^3/uL (0.0-1.1); MONO % 6 % (0-9); NEUT # 7.6 x10^3uL (1.8-7.7); NEUT % 71 % (31-73); PLATELET COUNT 290 x10^3/uL (140-400); RED BLOOD COUNT 4.25 x10^6/uL (3.50-5.40); WHITE BLOOD COUNT 10.7 x10^3/uL (4.0-11.0)
[2021-02-16 14:35] LABS: COLOR,URINE AMBER
[2021-02-16 14:36] LABS: BACTERIA,URINE FEW /HPF (0-FEW); BILIRUBIN,URINE SMALL (NEG); CALCIUM 9.2 mg/dL (8.5-10.1); CLARITY,URINE CLEAR; CREATININE 0.8 mg/dL (0.6-1.0); GFR 104.9; GLUCOSE,URINE NEG (NEG); NITRITE,URINE NEG (NEG); POTASSIUM 3.5 mmol/L (3.5-5.1); SQUAMOUS EPITHELIAL CELL,UR OCC /LPF; UROBILINOGEN,URINE 0.2 mg/dL (0.2 mg/dL)
[2021-02-16 14:42] LABS: ALBUMIN 3.4 g/dL (3.4-5.0); ALBUMIN/GLOBULIN RATIO 0.7 (1.0-1.7); TOTAL BILIRUBIN 0.5 mg/dL (0.2-1.0)
[2021-02-16] MEDS ORDERED: MORPHINE SULFATE 2 MG/ML DISP.SYRIN. IV ONE ×2 (14:45→16:00)
--- NOTE | 2021-02-16 15:09 | RAD ---
INDICATION : Reason: RUQ PAIN, POSITIVE JUSTIN'S SIGN / Spl. Instructions: / History: COMPARISON: None TECHNIQUE: Multiple ultrasound images obtained through the abdomen in grayscale and color. FINDINGS: Liver: Echotexture within normal limits in visualized portions of liver. Gallbladder: No wall thickening or stones. IVC: Partially distended at level of liver. Common Bile Duct: 5 to 6 mm Pancreas: No gross abnormality identified in visualized portions of pancreas. Right Kidney: No hydronephrosis. IMPRESSION: * Common bile duct near upper limits of normal in size without gallstones seen. The patient does [place] pain to transducer pressure in the right upper quadrant. Electronically signed by: eHnry Mckoy MD (02/16/2021 3:06 PM) [id number]
[2021-02-16] MEDS ORDERED: IOHEXOL 300 MG/ML 75 ML VIAL. IV ONE (16:15)
[2021-02-16] MEDS ORDERED: CONTRAST GIVEN. MC PRN (16:15)
--- NOTE | 2021-02-16 16:35 | RAD ---
INDICATION: Reason: RUQ PAIN, HEMATURIA OMNI 300 75ML IV / Spl. Instructions: / History: . COMPARISON: December 03, 2018 TECHNIQUE: Axial CT images obtained through the abdomen and pelvis with contrast. One or more of the following individualized dose reduction techniques were utilized for this examinat ion: 1. Automated exposure control; 2. Adjustment of the mA and/or kV according to patient size; 3 . Use of iterative reconstruction technique. FINDINGS: Abdominal aorta not aneurysmal. Subcentimeter low-density lesion left lobe the liver likely benign in nature in a patient of this age . Liver is mildly low density which can be seen with mild fatty infiltration. No peripancreatic fluid collection. Spleen unremarkable. No hydronephrosis. There is some high density material in the bilateral renal pelvis. Urinary bladder has minimal urine within it at time of exam. Within the left adnexa there is a rim-enhancing low-density structure measuring approximately 52 x 22 mm. There is a smaller fluid filled structure in the right adnexa with rim enhancement measuring javed roximately 8mm. Surgical clips right lower quadrant. No dilated loops of bowel to suggest obstruction. Sclerotic lesion left iliac bone measuring 14 mm. Most common cause would be bone island in a patient of this age unless they have history of neoplasm. IMPRESSION: * Within the left adnexa and extending posterior to the uterus there is a rim-enhancing fluid-filled structure identified. Differential considerations would include causes such as hydrosalpinx or pyosa lpinx as well as a fluid collection. Infectious involvement such as tubo-ovarian abscess is not exclu ded given the rim enhancement. * Liver is low density which can be seen with fatty infiltration. * High density within the bilateral renal pelvis likely secondary to excreted contrast. This could o bscure small renal stones. There is no hydronephrosis. Electronically signed by: Henry Mckoy MD (02/16/2021 4:33 PM) [id number]
[2021-02-16 17:29] VITALS: BP 122/79
== END 2021-02-16 18:10 | disposition home or self-care (01) ==
LOC: ER 13:52
DX: R10.11 Right upper quadrant pain (principal); K59.00 Constipation, unspecified; F17.210 Nicotine dependence, cigarettes, uncomplicated; Z90.89 Acquired absence of other organs; Z90.710 Acquired absence of both cervix and uterus
CPT/HCPCS: 36415; 74177; 76705; 80053; 81001; 81025; 83605; 83690; 85025; 87086; 96374; 96376; 99285; J2270; Q9967

== ENCOUNTER → 2021-05-10 | Outpatient (CLI) | payer OTHER ==
--- NOTE | 2021-05-10 10:49 | RAD ---
INDICATION: Follow-up of left adnexal finding. COMPARISON: CT from May 10, 2021 TECHNIQUE: Grayscale and color ultrasound images uterus and adnexa. Transabdominal and transvaginal images obtained. Transvaginal images were needed to better visualize structures that were limited on transabdominal imaging. FINDINGS: Uterus: 73 x 54 x 33 mm. A portion of the endometrial stripe at the fundus measures up to about 17 mm with heterogeneity withi n. The ovaries are not seen. Within the left adnexa there is a 65 x 59 x 46 mm complex masslike structur e identified. A portion appears complex cystic with some solid component. Difficult assessment when c ompared to prior secondary to difference in modality but appears slightly increased from prior. IMPRESSION: * Complex cystic masslike structure within the left adnexa. This appears slightly increased from pr ior and given the persistence and the patient's history causes such as recurrent neoplasm is a possib le cause. Tubo-ovarian abscess would be considered less likely given the persistence. * Heterogenous thickening of the endometrial stripe with internal vascularity. Could be from hyperpl barb with a mass in the area not excluded. Report called to the ordering provider's office at 10:38 A M on date of exam. Electronically signed by: Henry Mckoy MD (05/10/2021 10:46 AM) [id number]
== END ==
LOC: US 09:44
PROVIDERS: ATTEND Nurse Practitioner Women's Health
DX: N83.8 Other noninflammatory disorders of ovary, fallopian tube and broad ligament (principal); R93.89 Abnormal findings on diagnostic imaging of other specified body structures
CPT/HCPCS: 76830; 76856